=== PATIENT | female | born 1990 | race Caucasian/White ===

== ENCOUNTER 2018-05-31 07:31 | Emergency (ER) | payer BC ==
[2018-05-31 07:36] VITALS: RESP 18
[2018-05-31] MEDS ORDERED: SODIUM CHLORIDE 0.9% 1,000 ML IV STA (07:45)
--- NOTE | 2018-05-31 07:52 | ED ---
Abdominal Pain HPI - General Chief Complaint: Abdominal Pain Stated Complaint: RT SIDE PAIN Time Seen by Provider: 05/31/18 07:37 Source: patient, RN notes reviewed Mode of arrival: wheelchair Limitations: no limitations - History of Present Illness Initial Comments: This is a 27-year-old female presents emergency Department chief complaint right -sided abdominal pain. Patient states it was sudden ONSET OF PAIN THIS MORNING AND NOW HAS LOCATED IN THE RIGHT LOWER QUADRANT. PATIENT STATES THAT NOTHING SEEMS TO MAKE THE PAIN FEEL BETTER OR WORSE. SHE STATES IT IS A CONSTANT STABBING SHARP PAIN. PATIENT'S HAD NO PRIOR ABDOMINAL SURGERIES NO HISTORY KIDNEY STONES. SHE DENIES FEVER, CHILLS, NAUSEA, VOMITING, DIARRHEA CONSTIPATION. SHE HAS NO DYSURIA OR URINARY FREQUENCY. SHE STATES THAT SHE CURRENTLY IS ON HER MENSTRUAL CYCLE. SHE DENIES ANY CHANCE . - Related Data Home Medications Medication Instructions Recorded Confirmed Ibuprofen [Motrin Ib] 400 mg PO Q6H PRN 05/31/18 05/31/18 Previous Rx's Medication Instructions Recorded Ibuprofen [Motrin] 600 mg PO Q8HR PRN #30 tab 05/31/18 Ondansetron Odt [Zofran Odt] 4 mg PO Q8HR PRN #10 tab 05/31/18 Tamsulosin [Flomax] 0.4 mg PO DAILY #7 cap 05/31/18 Allergies Allergy/AdvReac Type Severity Reaction Status Date / Time No Known Allergies Allergy Verified 05/31/18 08:59 Review of Systems ROS Statement: Those systems with pertinent positive or pertinent negative responses have been documented in the HPI. ROS Other: All systems not noted in ROS Statement are negative. Past Medical History Past Medical History: No Reported History History of Any Multi-Drug Resistant Organisms: None Reported Past Surgical History: Adenoidectomy, Ear Surgery, Tonsillectomy Past Psychological History: No Psychological Hx Reported Smoking Status: Never smoker Past Alcohol Use History: Rare Past Drug Use History: None Reported General Exam Limitations: no limitations General appearance: alert, in no apparent distress Head exam: Present: atraumatic, normocephalic, normal inspection Respiratory exam: Present: normal lung sounds bilaterally. Absent: respiratory distress, wheezes, rales, rhonchi, stridor Cardiovascular Exam: Present: regular rate, normal rhythm, normal heart sounds. Absent: systolic murmur, diastolic murmur, rubs, gallop, clicks GI/Abdominal exam: Present: soft, tenderness (Mild tenderness with palpation in the right lower essentially no change in patient's pain with palpation), normal bowel sounds. Absent: distended, guarding, rebound, rigid Back exam: Absent: CVA tenderness (R), CVA tenderness (L) Skin exam: Present: warm, dry, intact, normal color. Absent: rash Course Vital Signs 05/31/18 05/31/18 07:34 09:26 Temperature 97.9 F 98.4 F Pulse Rate 107 H 86 Respiratory 18 18 Rate Blood Pressure 125/65 115/59 O2 Sat by Pulse 100 98 Oximetry Medical Decision Making - Medical Decision Making 27-year-old female presented from for right-sided abdominal pain. Patient's found to have a 3 mm UVJ stone. Patient also has additional nephrolithiasis. Patient is comfortable at this time. Patient we given ibuprofen 600, Zofran and Flomax. She'll be provided on-call urology. Patient does understand that she cannot get while taking Flomax. Patient will follow-up with her PCP and neurology as needed. - Lab Data Result diagrams: 05/31/18 07:50 05/31/18 07:50 Lab Results 05/31/18 05/31/18 05/31/18 Range/Units 07:50 07:50 08:24 WBC 5.9 (3.8-10.6) k/uL RBC 4.45 (3.80-5.40) m/uL Hgb 13.3 (11.4-16.0) gm/dL Hct 40.0 (34.0-46.0) % MCV 89.9 (80.0-100.0) fL MCH 30.0 (25.0-35.0) pg MCHC 33.4 (31.0-37.0) g/dL RDW 12.9 (11.5-15.5) % Plt Count 308 (150-450) k/uL Neutrophils % 51 % Lymphocytes % 39 % Monocytes % 5 % Eosinophils % 1 % Basophils % 0 % Neutrophils # 3.0 (1.3-7.7) k/uL Lymphocytes # 2.3 (1.0-4.8) k/uL Monocytes # 0.3 (0-1.0) k/uL Eosinophils # 0.1 (0-0.7) k/uL Basophils # 0.0 (0-0.2) k/uL Sodium 141 (137-145) mmol/L Potassium 4.0 (3.5-5.1) mmol/L Chloride 108 H (98-107) mmol/L Carbon Dioxide 21 L (22-30) mmol/L Anion Gap 12 mmol/L BUN 16 (7-17) mg/dL Creatinine 0.74 (0.52-1.04) mg/dL Est GFR (CKD-EPI)AfAm >90 (>60 ml/min/1.73 sqM) Est GFR (CKD-EPI)NonAf >90 (>60 ml/min/1.73 sqM) Glucose 105 H (74-99) mg/dL Calcium 9.6 (8.4-10.2) mg/dL Total Bilirubin 1.0 (0.2-1.3) mg/dL AST 22 (14-36) U/L ALT 24 (9-52) U/L Alkaline Phosphatase 63 (38-126) U/L Total Protein 7.2 (6.3-8.2) g/dL Albumin 4.7 (3.5-5.0) g/dL Amylase 53 (30-110) U/L Lipase 61 (23-300) U/L Urine Color Urine Appearance (Clear) Urine pH (5.0-8.0) Ur Specific [place] (1.001-1.035) Urine Protein (Negative) Urine Glucose (UA) (Negative) Urine Ketones (Negative) Urine Blood (Negative) Urine Nitrite (Negative) Urine Bilirubin (Negative) Urine Urobilinogen (<2.0) mg/dL Ur Leukocyte Esterase (Negative) Urine RBC (0-5) /hpf Urine WBC (0-5) /hpf Ur Squamous Epith Cells (0-4) /hpf Urine Bacteria (None) /hpf Urine Mucus (None) /hpf Urine HCG, Qual Not Detected (Not Detectd) 05/31/18 Range/Units 08:24 WBC (3.8-10.6) k/uL RBC (3.80-5.40) m/uL Hgb (11.4-16.0) gm/dL Hct (34.0-46.0) % MCV (80.0-100.0) fL MCH (25.0-35.0) pg MCHC (31.0-37.0) g/dL RDW (11.5-15.5) % Plt Count (150-450) k/uL Neutrophils % % Lymphocytes % % Monocytes % % Eosinophils % % Basophils % % Neutrophils # (1.3-7.7) k/uL Lymphocytes # (1.0-4.8) k/uL Monocytes # (0-1.0) k/uL Eosinophils # (0-0.7) k/uL Basophils # (0-0.2) k/uL Sodium (137-145) mmol/L Potassium (3.5-5.1) mmol/L Chloride (98-107) mmol/L Carbon Dioxide (22-30) mmol/L Anion Gap mmol/L BUN (7-17) mg/dL Creatinine (0.52-1.04) mg/dL Est GFR (CKD-EPI)AfAm (>60 ml/min/1.73 sqM) Est GFR (CKD-EPI)NonAf (>60 ml/min/1.73 sqM) Glucose (74-99) mg/dL Calcium (8.4-10.2) mg/dL Total Bilirubin (0.2-1.3) mg/dL AST (14-36) U/L ALT (9-52) U/L Alkaline Phosphatase (38-126) U/L Total Protein (6.3-8.2) g/dL Albumin (3.5-5.0) g/dL Amylase (30-110) U/L Lipase (23-300) U/L Urine Color Yellow Urine Appearance Clear (Clear) Urine pH 6.0 (5.0-8.0) Ur Specific [place] 1.024 (1.001-1.035) Urine Protein Trace H (Negative) Urine Glucose (UA) Negative (Negative) Urine Ketones Negative (Negative) Urine Blood Moderate H (Negative) Urine Nitrite Negative (Negative) Urine Bilirubin Negative (Negative) Urine Urobilinogen <2.0 (<2.0) mg/dL Ur Leukocyte Esterase Trace H (Negative) Urine RBC 121 H (0-5) /hpf Urine WBC 7 H (0-5) /hpf Ur Squamous Epith Cells 2 (0-4) /hpf Urine Bacteria Rare H (None) /hpf Urine Mucus Moderate H (None) /hpf Urine HCG, Qual (Not Detectd) Disposition Clinical Impression: Ureteral calculi, Nephrolithiasis Disposition: HOME SELF-CARE Condition: Stable Instructions: Kidney Stones (ED), How to Strain Your Urine (ED) Additional Instructions: Please return to the Emergency Department if symptoms worsen or any other concerns. Prescriptions: Ibuprofen [Motrin] 600 mg PO Q8HR PRN #30 tab PRN Reason: Pain Ondansetron Odt [Zofran Odt] 4 mg PO Q8HR PRN #10 tab PRN Reason: Nausea Tamsulosin [Flomax] 0.4 mg PO DAILY #7 cap Is patient prescribed a controlled substance at d/c from ED?: No Referrals: Patti Morgan DO [Primary Care Provider] - 1-2 days Sudheer Santiago MD [STAFF PHYSICIAN] - 1-2 days Time of Disposition: 10:07
[2018-05-31 08:21] LABS: Basophils % (A) 0 %; Eosinophils # (A) 0.1 k/uL (0-0.7); Eosinophils % (A) 1 %; HGB 13.3 gm/dL (11.4-16.0); Lymphocytes # (A) 2.3 k/uL (1.0-4.8); Lymphocytes % (A) 39 %; MCHC 33.4 g/dL (31.0-37.0); MCV 89.9 fL (80.0-100.0); Mean Platelet Volume 7.6; Monocytes # (A) 0.3 k/uL (0-1.0); Monocytes % (A) 5 %; Neutrophils % (A) 51 %; Platelet Count 308 k/uL (150-450); RBC 4.45 m/uL (3.80-5.40); RDW 12.9 % (11.5-15.5); WBC 5.9 k/uL (3.8-10.6)
[2018-05-31 08:25] LABS: ALT 24 U/L (9-52); AST 22 U/L (14-36); Albumin 4.7 g/dL (3.5-5.0); Alkaline Phosphatase 63 U/L (38-126); Amylase 53 U/L (30-110); Anion Gap 12 mmol/L; Blood Urea Nitrogen 16 mg/dL (7-17); Calcium 9.6 mg/dL (8.4-10.2); Carbon Dioxide 21 mmol/L (22-30); Chloride 108 mmol/L (98-107); Glucose 105 mg/dL (74-99); Lipase 61 U/L (23-300); Sodium 141 mmol/L (137-145); Total Protein 7.2 g/dL (6.3-8.2)
[2018-05-31 08:36] LABS: Appearance,Urine Clear (Clear); Bacteria,Urine Rare /hpf; Bilirubin,Urine Negative (Negative); Blood,Urine Moderate (Negative); Color,Urine Yellow; Glucose,Urine (UA) Negative (Negative); Ketones,Urine Negative (Negative); Leukocyte Esterase,Urine Trace (Negative); Mucus,Urine Moderate /hpf; Nitrite,Urine Negative (Negative); Protein,Urine Trace (Negative); RBC,Urine 121 /hpf (0-5); Specific Gravity,Urine 1.024 (1.001-1.035); Squamous Epithelial Cell,Urine 2 /hpf (0-4); Urobilinogen,Urine <2.0 mg/dL (<2.0); WBC,Urine 7 /hpf (0-5)
[2018-05-31] MEDS ORDERED: KETOROLAC 30 MG/ML 1 ML VIAL IVP STA (08:41)
--- NOTE | 2018-05-31 08:58 | XR ---
EXAMINATION TYPE: XR KUB DATE OF EXAM: 05/31/2018 COMPARISON: None INDICATION: Right lower quadrant pain TECHNIQUE: Single view abdomen upright view FINDINGS: There is a normal bowel gas pattern. There is within the colon. Some fecal debris is in the ascending colon and within the lower pelvis. No mass effect is evident. No suspicious air-fluid levels or diff erential air-fluid levels are present. No free air is present. Psoas margins are normal. No organomegaly is present. IMPRESSION: 1. Unremarkable Abdomen
--- NOTE | 2018-05-31 09:55 | CT ---
EXAMINATION TYPE: CT abdomen pelvis wo con DATE OF EXAM: 05/31/2018 COMPARISON: None HISTORY: 27-year-old female RLQ pain CT DLP: 258.9 mGycm. Automated exposure control for dose reduction was used. TECHNIQUE: Contiguous axial scanning of the abdomen and pelvis without IV contrast. Coronal and sagit rivera reconstructions performed. FINDINGS: Heart normal size without pericardial effusion. Lung bases clear without pleural effusion. Noncontrast appearance of the liver, gallbladder, adrenal glands, spleen, and pancreas show no gross abnormality. Punctate 3 mm nonobstructive calculus upper to midpole left kidney. Punctate 1 to 2 mm nonobstructive calculus lower pole right kidney. In addition, there is mild right- sided hydronephrosis and hydroureter. 3 mm calcification in the right side of the pelvis suspected to be within the distal right ureter. No dilated small bowel, free fluid, or free air. Lack of contrast limits assessment for lymphadenopat hy. No obvious retroperitoneal or mesenteric lymphadenopathy. Mild to moderate stool burden. Bladder incompletely distended. Uterus anteverted. Both ovaries are visualized. Tampon is in place. M ild cul-de-sac free fluid likely physiologic. Bones: No osseous destructive process. IMPRESSION: 1. A 3 mm distal right ureteral calculus with mild obstructive uropathy. 2. Additional punctate 1 to 2 mm nonobstructive right renal calculus and a small 3 mm nonobstructive left renal calculus. 3. Mild cul-de-sac free fluid likely physiologic.
[2018-05-31 10:31] VITALS: BP 110/58; PULSE 79; TEMP 97.2
== END 2018-05-31 10:30 | disposition home or self-care (01) ==
LOC: EC 07:31
DX: N20.2 Calculus of kidney with calculus of ureter (principal)
CPT/HCPCS: 36415; 74018; 74176; 80053; 81001; 81025; 82150; 83690; 85025; 96360; 99284

== ENCOUNTER 2023-09-12 12:40 | Emergency (ER) | payer BC ==
[2023-09-12 12:46] VITALS: PULSE 83
[2023-09-12] MEDS ORDERED: FAMOTIDINE 20 MG/2 ML VIAL IV STA (12:56)
[2023-09-12] MEDS ORDERED: FAMOTIDINE 20 MG TAB PO STA (12:56)
[2023-09-12] MEDS ORDERED: ONDANSETRON ODT 4 MG TAB PO STA (12:56)
--- NOTE | 2023-09-12 13:00 | ED ---
General Adult HPI - General Chief complaint: Upper Respiratory Infection Stated complaint: Sore throat,Cough, 29 weeks preg Time Seen by Provider: 09/12/23 12:50 Source: patient, family, RN notes reviewed Mode of arrival: ambulatory Limitations: no limitations - History of Present Illness Initial comments: Patient is a pleasant 32-year-old female presenting to the emergency Department with upper respiratory symptoms. Onset of symptoms was a few days ago. Patient does have some mild congestion. Patient does have cough. No dyspnea. Patient does have sore throat. Patient is approximately 29 weeks gravid. No abdominal pain or pelvic pain. No vaginal bleeding. Patient feels like she is concerned seem less movement than normal, however is still feeling movement. Patient does have nausea. Patient is tolerating oral intake however. - Related Data Home Medications Medication Instructions Recorded Confirmed Ibuprofen [Motrin Ib] 400 mg PO Q6H PRN 05/31/18 05/31/18 Previous Rx's Medication Instructions Recorded Ibuprofen [Motrin] 600 mg PO Q8HR PRN #30 tab 05/31/18 Ondansetron Odt [Zofran Odt] 4 mg PO Q8HR PRN #10 tab 05/31/18 Tamsulosin [Flomax] 0.4 mg PO DAILY #7 cap 05/31/18 Allergies Allergy/AdvReac Type Severity Reaction Status Date / Time No Known Allergies Allergy Verified 09/12/23 12:42 Review of Systems ROS Statement: Those systems with pertinent positive or pertinent negative responses have been documented in the HPI. ROS Other: All systems not noted in ROS Statement are negative. Constitutional: Denies: fever Eyes: Denies: eye pain ENT: Reports: as per HPI, throat pain, congestion. Denies: ear pain Respiratory: Reports: as per HPI, cough. Denies: dyspnea Cardiovascular: Denies: chest pain Endocrine: Denies: fatigue Gastrointestinal: Reports: nausea. Denies: abdominal pain, vomiting Genitourinary: Denies: dysuria Musculoskeletal: Denies: back pain Skin: Denies: rash Past Medical History Past Medical History: No Reported History History of Any Multi-Drug Resistant Organisms: None Reported Past Surgical History: Adenoidectomy, Ear Surgery, Tonsillectomy Past Psychological History: No Psychological Hx Reported Past Alcohol Use History: Rare Past Drug Use History: None Reported General Exam Limitations: no limitations General appearance: alert, in no apparent distress Head exam: Present: normocephalic Eye exam: Present: normal appearance ENT exam: Present: normal oropharynx Neck exam: Present: normal inspection Respiratory exam: Present: normal lung sounds bilaterally Cardiovascular Exam: Present: regular rate, normal rhythm GI/Abdominal exam: Present: soft, other (Gravid state consistent with patient's history). Absent: tenderness Extremities exam: Present: normal inspection. Absent: pedal edema, calf tenderness Neurological exam: Present: alert Psychiatric exam: Present: normal affect, normal mood Skin exam: Present: normal color Course Vital Signs 09/12/23 09/12/23 09/12/23 12:42 12:55 14:12 Temperature 98.9 F 96.8 F L Pulse Rate 83 83 Respiratory 16 18 18 Rate Blood Pressure 130/77 117/72 O2 Sat by Pulse 98 Oximetry Medical Decision Making - Medical Decision Making Discussion had with patient regarding chest x-ray. Patient is at low risk for pneumonia. Patient refuses chest x-ray. Was pt. sent in by a medical professional or institution (, PA, ASSOCIATE PROFESSOR OF HISTORY, urgent care, hospital, or senior living...) When possible be specific @ -No Did you speak to anyone other than the patient for history (EMS, parent, family, police, friend...)? What history was obtained from this source @ -Mother is present and helps provide additional history Did you review nursing and triage notes (agree or disagree)? Why? @ -I reviewed and agree with nursing and triage notes Were old charts reviewed (outside hosp., previous admission, EMS record, old EKG, old radiological studies, urgent care reports/EKG's, senior living records)? Report findings @ -No old charts were reviewed Differential Diagnosis (chest pain, altered mental status, abdominal pain women, abdominal pain men, vaginal bleeding, weakness, fever, dyspnea, syncope, headache, dizziness, GI bleed, back pain, seizure, CVA, palpatations, mental health, musculoskeletal)? @ -Differential Fever: Pneumonia, viral URI, endocarditis, myocarditis, pericarditis, otitis, sinusitis, peritonsillar Abscess, retropharyngeal Abscess, epiglottitis, peritonitis, appendicitis, [place] cystitis, diverticulitis, hepatitis, colitis, UTI, PID, TOA, pyelonephritis, prostatitis, epididymitis, meningitis, encephalitis, pulmonary embolism, CVA, thyroid storm, pancreatitis, adrenal crisis, cavernous sinus thrombosis, this is not meant to be an all-inclusive list. EKG interpreted by me (3pts min.). @ -As above X-rays interpreted by me (1pt min.). @ -None done CT interpreted by me (1pt min.). @ -None done U/S interpreted by me (1pt. min.). @ -None done What testing was considered but not performed or refused? (CT, X-rays, U/S, labs)? Why? @ -Considered x-ray however patient refuses. Patient is low suspicion for pneumonia What meds were considered but not given or refused? Why? @ -Consider antibiotics however patient presents with viral-like symptoms Did you discuss the management of the patient with other professionals (professionals i.e. , PA, ASSOCIATE PROFESSOR OF HISTORY, lab, RT, psych nurse, social work professor, sandblaster paint sprayer, teacher, hydrological technical officer, case management social worker)? Give summary @ -No Was smoking cessation discussed for >3mins.? @ -No Was critical care preformed (if so, how long)? @ -No Were there social determinants of health that impacted care today? How? (Homelessness, low income, unemployed, alcoholism, drug addiction, transportation, low edu. Level, literacy, decrease access to med. care, long term, rehab)? @ -No Was there de-escalation of care discussed even if they declined (Discuss DNR or withdrawal of care, Hospice)? DNR status @ -No What co-morbidities impacted this encounter? (DM, HTN, Smoking, COPD, CAD, Cancer, CVA, ARF, Chemo, Hep., AIDS, mental health diagnosis, sleep apnea, morbid obesity)? @ -Patient is 29 weeks Was patient admitted / discharged? Hospital course, mention meds given and route, prescriptions, significant lab abnormalities, going to OR and other pertinent info. @ -Patient reevaluated and updated on results as well as need for follow-up. Patient also advised to heading upstairs for nonstress test Undiagnosed new problem with uncertain prognosis? @ -No Drug Therapy requiring intensive monitoring for toxicity (Heparin, Nitro, Insulin, Cardizem)? @ -No Were any procedures done? @ -No Diagnosis/symptom? @ -Upper respiratory infection, viral sinusitis Acute, or Chronic, or Acute on Chronic? @ -Acute, acute Uncomplicated (without systemic symptoms) or Complicated (systemic symptoms)? @ -default Side effects of treatment? @ -No Exacerbation, Progression, or Severe Exacerbation? @ -No Poses a threat to life or bodily function? How? (Chest pain, [place], [place], pneumonia, PE, COPD, DKA, ARF, appy, cholecystitis, CVA, Diverticulitis, Homicidal, Suicidal, threat to staff... and all critical care pts) @ -No - Lab Data Lab Results 09/12/23 09/12/23 Range/Units 12:59 12:59 Influenza Type A (PCR) Not Detected (Not Detectd) Influenza Type B (PCR) Not Detected (Not Detectd) RSV (PCR) Not Detected (Not Detectd) SARS-CoV-2 (PCR) Not Detected (Not Detectd) Group A Strep (PCR) NOT DETECTED (Not Detectd) Disposition Clinical Impression: Upper respiratory infection, Viral sinusitis Disposition: HOME SELF-CARE Condition: Stable Instructions (If sedation given, give patient instructions): Upper Respiratory Infection (ED) Additional Instructions: Please head upstairs for nonstress test. Please follow-up with your SUPERVISOR PREP in the next one or 2 days for recheck. Please also follow-up to primary care physician next one or 2 days for recheck. Return for difficulty breathing, fevers, pelvic pain or bleeding, worsening or changing symptoms or other concerns. Is patient prescribed a controlled substance at d/c from ED?: No Referrals: Patti Morgan DO [Primary Care Provider] - 1-2 days Time of Disposition: 14:32
[2023-09-12 13:11] VITALS: RESP 18
[2023-09-12 14:29] VITALS: BP 117/72; TEMP 96.8
== END 2023-09-12 14:37 | disposition home or self-care (01) ==
LOC: EC 12:40
DX: O99.513 Diseases of the respiratory system complicating pregnancy, third trimester (principal); J06.9 Acute upper respiratory infection, unspecified; J32.9 Chronic sinusitis, unspecified; Z3A.29 29 weeks gestation of pregnancy; Z20.822 Contact with and (suspected) exposure to COVID-19
CPT/HCPCS: 87636; 87651; 99283

== ENCOUNTER 2023-10-20 15:04 | Outpatient (CLI) | payer BC | END 2023-10-20 15:35 | disposition home or self-care (01) | LOC: FBPOP 15:04 | PROVIDERS: ATTEND Obstetrics & Gynecology | DX: O69.89X0 Labor and delivery complicated by other cord complications, not applicable or unspecified (principal); Z3A.34 34 weeks gestation of pregnancy | CPT/HCPCS: 59025 ==

== ENCOUNTER 2023-10-28 13:27 | Outpatient (CLI) | payer BC | END 2023-10-28 13:59 | disposition home or self-care (01) | LOC: FBPOP 13:27 | PROVIDERS: ATTEND Obstetrics & Gynecology | DX: O69.5XX2 Labor and delivery complicated by vascular lesion of cord, fetus 2 (principal); Z3A.29 29 weeks gestation of pregnancy | CPT/HCPCS: 59025; 99213 ==

== ENCOUNTER 2023-11-10 15:24 | Outpatient (CLI) | payer BC ==
[2023-11-10 16:16] VITALS: BP 137/85; PULSE 75; RESP 16; TEMP 97.9
--- NOTE | 2023-11-13 16:49 | P.MSEPDOC ---
Presenting Problems - Arrival Data Date of Arrival on Unit: 11/10/23 Time of Arrival on Unit: 15:24 Mode of Transport: Ambulatory - Complaint OB-Reason for Admission/Chief Complaint: NST Comment: NST with orders to D/C home if reactive Medical History - Information : 1 Para: 0 Term: 0 : 0 Abortions: Spontaneous or Elective: 0 Number of Living Children: 0 - Gestational Age Gestational Age by AZIZA (wks/days): 37 Weeks and 2 Days - History Complications: GBS+ Comment: 2 vessel cord Review of Systems - Review of Systems Constitutional: No problems Breast: No problems ENT: No problems Cardiovascular: No problems Respiratory: No problems Gastrointestinal: No problems Genitourinary: No problems Musculoskeletal: No problems Neurological: No problems Skin: No problems Vital Signs - Temperature Temperature: 97.9 F Temperature Source: Temporal Artery Scan - Pulse Pulse Oximetery Pulse Rate: 75 Pulse Assessment Method: Pulse Oximetry - Respirations Respiratory Rate: 16 Oxygen Delivery Method: Room Air O2 Sat by Pulse Oximetry: 97 - Blood Pressure Right Arm Blood Pressure: 137/85 Blood Pressure Mean: 102 Blood Pressure Source: Automatic Cuff Medical Screen Scoring - Assessment - Baby A Baseline FHR: 145 Heart Rate - NICHD Category: Category I (Normal) NST: Reactive Physician Notification - Notification Comment Comment: Pt presents with written orders for an NST and to discharge pt home if reactive. Maternal Triage Index - Maternal Triage Index Presenting for scheduled procedure w/no complaint: Yes - Scheduled/Requesting Priority 5 Scheduled/Requesting Priority 5: Yes Criteria Met for Priority 5: NST with written orders to discharge home if reactive Disposition - Disposition OB Disposition: Discharge to home Discharge Date: 11/10/23 Discharge Time: 15:58 I agree with the RN Medical Screening Exam: Yes Case reviewed; plan agreed upon as documented in EMR&OBIX.: Yes Diagnosis: RELATED CONDITIONS, UNSPECIFIED, THIRD TRIMESTER
== END 2023-11-10 15:58 | disposition home or self-care (01) ==
LOC: FBPOP 15:24
PROVIDERS: ATTEND Obstetrics & Gynecology
DX: O99.820 Streptococcus B carrier state complicating pregnancy (principal); O69.5XX1 Labor and delivery complicated by vascular lesion of cord, fetus 1; Z3A.37 37 weeks gestation of pregnancy
CPT/HCPCS: 59025; 99213

== ENCOUNTER 2023-11-16 14:22 | Inpatient (IN) | payer BC ==
[2023-11-16 15:13] LABS: Appearance,Urine Clear (Clear); Bacteria,Urine Rare /hpf; Bilirubin,Urine Negative (Negative); Blood,Urine Trace (Negative); Color,Urine Light Yellow; Glucose,Urine (UA) Negative (Negative); Ketones,Urine Negative (Negative); Leukocyte Esterase,Urine Small (Negative); Mucus,Urine Occasional /hpf; Nitrite,Urine Negative (Negative); Protein,Urine 1+ (Negative); RBC,Urine 1 /hpf (0-5); Specific Gravity,Urine 1.017 (1.001-1.035); Squamous Epithelial Cell,Urine 1 /hpf (0-4); Urobilinogen,Urine <2.0 mg/dL (<2.0); WBC,Urine 4 /hpf (0-5)
[2023-11-16 15:32] LABS: Creatinine,Urine Random 97.5 mg/dL
[2023-11-16 15:55] LABS: Basophils % (A) 0 %; Eosinophils % (A) 0 %; HCT 28.4 % (34.0-46.0); HGB 9.9 gm/dL (11.4-16.0); Lymphocytes # (A) 1.8 k/uL (1.0-4.8); Lymphocytes % (A) 19 %; MCH 31.2 pg (25.0-35.0); MCV 89.1 fL (80.0-100.0); Mean Platelet Volume 12.5; Monocytes # (A) 0.4 k/uL (0-1.0); Monocytes % (A) 4 %; Neutrophils # (A) 7.2 k/uL (1.3-7.7); Neutrophils % (A) 75 %; Platelet Count 187 k/uL (150-450); RBC 3.19 m/uL (3.80-5.40); RDW 12.8 % (11.5-15.5); WBC 9.6 k/uL (3.8-10.6)
[2023-11-16 15:59] LABS: INR 0.9 (<1.2); Partial Thromboplastin Time 24.8 sec (22.0-30.0); Prothrombin Time 9.8 sec (10.0-12.5)
[2023-11-16 16:10] LABS: ALT 18 U/L (4-34); AST 23 U/L (14-36); African American GFR (CKD) >90 (>60 ml/min/1.73 sqM); Blood Urea Nitrogen 14 mg/dL (7-17); LDH 196 U/L (120-246); Non-African American GFR(CKD) >90 (>60 ml/min/1.73 sqM)
[2023-11-16 16:21] LABS: Large Platelets Present; Polychromasia Present
[2023-11-16 16:31] LABS: Creatinine,Urine Random 97.5 mg/dL
[2023-11-16 16:32] LABS: Protein/Creatinine Ratio,Urine 1.333
[2023-11-17] MEDS ORDERED: TRANEXAMIC 1,000 MG/100ML-NACL 1,000 MG in EMPTY BAG 1 BAG IV PRN (04:33)
[2023-11-17] MEDS ORDERED: METHYLERGONOVINE 0.2 MG/ML 1 ML AMP IM PRN (04:33)
[2023-11-17] MEDS ORDERED: TERBUTALINE 1 MG/ML VIAL SQ PRN (04:33)
[2023-11-17] MEDS ORDERED: CARBOPROST TROMETHAMINE 250 MCG/ML 1 ML AMP IM PRN (04:33)
[2023-11-17] MEDS ORDERED: OXYTOCIN 10 UNIT/ML 1 ML VIAL IM PRN (04:33)
[2023-11-17] MEDS ORDERED: miSOPROStoL 200 MCG TAB PO PRN (04:33)
[2023-11-17] MEDS: LACTATED RINGERS 1,000 ML IV SCH (04:58)
[2023-11-17] MEDS: LABETALOL 200 MG TAB PO STA (05:11)
[2023-11-17] MEDS: AMPICILLIN 2,000 MG in SODIUM CHLORIDE 0.9% 100 ML IVPB ONE (05:50)
[2023-11-17] MEDS: OXYTOCIN 30 UNITS/500 ML NS 30 UNIT in SALINE 1 500ML.BAG IV SCH (05:51)
[2023-11-17 06:05] LABS: Basophils % (A) 0 %; Eosinophils # (A) 0.1 k/uL (0-0.7); Eosinophils % (A) 1 %; HCT 29.9 % (34.0-46.0); HGB 10.2 gm/dL (11.4-16.0); Hypochromasia Slight; Lymphocytes # (A) 2.2 k/uL (1.0-4.8); Lymphocytes % (A) 26 %; MCH 30.3 pg (25.0-35.0); MCV 89.2 fL (80.0-100.0); Mean Platelet Volume 13.4; Monocytes # (A) 0.5 k/uL (0-1.0); Monocytes % (A) 5 %; Neutrophils # (A) 5.6 k/uL (1.3-7.7); Neutrophils % (A) 65 %; Platelet Count 173 k/uL (150-450); RBC 3.36 m/uL (3.80-5.40); WBC 8.6 k/uL (3.8-10.6)
[2023-11-17] MEDS ORDERED: hydrALAZINE HCL 20 MG/ML 1 ML VIAL IVP PRN (06:15)
[2023-11-17] MEDS ORDERED: LABETALOL 5 MG/ML VIAL MDV IVP PRN ×2 (06:15)
[2023-11-17] MEDS: LABETALOL 5 MG/ML VIAL MDV IVP PRN (06:22)
--- NOTE | 2023-11-17 06:33 | P.HPOB ---
History of Present Illness H&P Date: 11/17/23 Chief Complaint: Preeclampsia This patient is a pleasant 33-year-old 1 para 0 female estimated date of confinement 11/29/2023 estimated gestational age 38-2/7 weeks who presented to labor and delivery triage yesterday for a nonstress tests secondary to a known two-vessel umbilical cord. Upon arrival patient had elevated blood pressures and Dr. Pryor did preeclampsia labs which showed an elevated PC ratio. Blood pressures continued to be persistently elevated and patient therefore is admitted for delivery secondary to preeclampsia. Patient's is com plicated by two-vessel cord. She was referred to maternal- medicine and did have a level III ultrasound that was normal. Patient has been followed with growth ultrasounds and testing. She has not had any elevated blood pressures until yesterday. She has been developing some significant edema. Review of Systems Genitourinary: Reports Menstruation: Reports amenorrhea Past Medical History Past Medical History: Asthma Additional Past Medical History / Comment(s): Childhood asthma History of Any Multi-Drug Resistant Organisms: None Reported Past Surgical History: Adenoidectomy, Ear Surgery, Tonsillectomy Past Anesthesia/Blood Transfusion Reactions: No Reported Reaction Past Psychological History: No Psychological Hx Reported Smoking Status: Never smoker Past Alcohol Use History: None Reported, Rare Past Drug Use History: None Reported - Past Family History Mother Family Medical History: Cancer Additional Family Medical History / Comment(s): Breast cancer Medications and Allergies Home Medications Medication Instructions Recorded Confirmed Type Vqb-Fmhp-Omgcy Acid 1 cap PO DAILY 09/12/23 11/16/23 History [-U Capsule (formulary)] Allergies Allergy/AdvReac Type Severity Reaction Status Date / Time No Known Allergies Allergy Verified 11/16/23 14:39 Exam Vital Signs Temp Pulse Resp BP Pulse Ox 11/16/23 20:00 96.6 F L 106 H 16 143/80 97 11/16/23 17:23 98.2 F 76 18 159/90 99 11/16/23 17:12 98.2 F 76 18 159/90 Intake and Output 11/16/23 11/16/23 11/17/23 14:59 22:59 06:59 Other: # Voids 2 2 Weight 82.554 kg 82.554 kg - OBG Physical Exam Abdomen: bowel sounds normal, no diffuse tenderness, no bruit present, no guarding noted, no hepatomegaly, no splenomegaly, no mass Vulva: both: normal Vagina: normal moisture, no discharge Cervix: no lesion (Cervix is 2 cm dilated 70% effaced -2 station), no discharge Uterus: enlarged (Fundal height in the office is 37 cm) Results labs show she is A positive, rubella nonimmune, RPR is nonreactive, HIV is negative, hepatitis B and C are negative, Glucola was 141 with a normal three-hour gtt., most recent ultrasound showed baby 5 lbs. 9 oz. vertex presentation, group B strep was positive. Level III ultrasound cardiac echo were normal. Result Diagrams: 11/17/23 04:54 11/16/23 15:33 Abnormal Lab Results - Last 24 Hours (Table) 11/16/23 11/16/23 11/16/23 Range/Units 14:59 14:59 15:33 RBC 3.19 L (3.80-5.40) m/uL Hgb 9.9 L (11.4-16.0) gm/dL Hct 28.4 L (34.0-46.0) % PT (10.0-12.5) sec Urine Protein 1+ H (Negative) Urine Blood Trace H (Negative) Ur Leukocyte Esterase Small H (Negative) Urine Bacteria Rare H (None) /hpf Urine Mucus Occasional H (None) /hpf U Random Total Protein 130 H (<12) mg/dL 11/16/23 11/17/23 Range/Units 15:33 04:54 RBC 3.36 L (3.80-5.40) m/uL Hgb 10.2 L (11.4-16.0) gm/dL Hct 29.9 L (34.0-46.0) % PT 9.8 L (10.0-12.5) sec Urine Protein (Negative) Urine Blood (Negative) Ur Leukocyte Esterase (Negative) Urine Bacteria (None) /hpf Urine Mucus (None) /hpf U Random Total Protein (<12) mg/dL Assessment and Plan Assessment: This is a pleasant 33-year-old 1 para 0 female 38-2/7 weeks gestation with preeclampsia. Patient has required oral and IV labetalol for blood pressure control and plan is to proceed with delivery at this time. I discussed the induction process with the patient and her and all questions are an swered. Most likely we will proceed with magnesium sulfate . (1) 38 weeks gestation of Current Visit: Yes Status: Acute Code(s): Z3A.38 - 38 WEEKS GESTATION OF SNOMED Code(s): 43729710 (2) Preeclampsia Current Visit: Yes Status: Acute Code(s): O14.90 - UNSPECIFIED PRE- ECLAMPSIA, UNSPECIFIED TRIMESTER SNOMED Code(s): 644940442 (3) Two vessel umbilical cord Current Visit: Yes Status: Acute Code(s): Q27.0 - CONGENITAL ABSENCE AND HYPOPLASIA OF UMBILICAL ARTERY SNOMED Code(s): 331782940
[2023-11-17 07:03] LABS: Large Platelets Present
[2023-11-17] MEDS ORDERED: SODIUM CHLORIDE 0.9% 250 ML BAG ONE (08:50)
[2023-11-17] MEDS ORDERED: fentaNYL (PF) 50 MCG/ML 5 ML AMP ONE (08:50)
[2023-11-17] MEDS ORDERED: ROPIVACAINE 5 MG/ML 30 ML VIAL ONE (08:50)
[2023-11-17] MEDS: AMPICILLIN 1,000 MG in SODIUM CHLORIDE 0.9% 50 ML IVPB SCH (09:40)
[2023-11-17] MEDS: LIDOCAINE 0.5% (PF) 5 MG/ML (50 ML SDV) SQ PRN (12:35)
[2023-11-17] MEDS ORDERED: ACETAMINOPHEN TAB 325 MG TAB PO PRN (12:57)
[2023-11-17] MEDS ORDERED: BENZOCAINE/MENTHOL SPRAY 1 GM/SPRAY AEROSOL TOPICAL PRN (12:57)
[2023-11-17] MEDS ORDERED: ZOLPIDEM 5 MG TAB PO PRN (12:57)
[2023-11-17] MEDS ORDERED: LANOLIN CREAM 1 GM TUBE TOPICAL PRN (12:57)
[2023-11-17] MEDS ORDERED: diphenhydrAMINE 25 MG CAP PO PRN (12:57)
[2023-11-17] MEDS ORDERED: diphenhydrAMINE 50 MG/ML 1 ML VIAL IVP PRN (12:57)
[2023-11-17] MEDS ORDERED: SIMETHICONE 80 MG CHEWABLE PO PRN (12:57)
[2023-11-17] MEDS ORDERED: HYDROCORTISONE 2.5% RECTAL CREAM 30 GM TUBE RECTAL PRN (12:57)
[2023-11-17] MEDS ORDERED: bisacodyL 10 MG SUPP RECTAL PRN (12:57)
[2023-11-17] MEDS ORDERED: CALCIUM GLUCONATE 1 GM/10 ML VIAL IV PRN (13:00)
[2023-11-17] MEDS ORDERED: OXYTOCIN 30 UNITS/500 ML NS 30 UNIT in SALINE 1 500ML.BAG IV SCH (13:00)
--- NOTE | 2023-11-17 13:08 | P.PROBDLV ---
Vaginal Delivery Note - . Vaginal Delivery Note: Normal vaginal delivery viable female Apgars 8 and 9 at 1156 hrs. Please see dictated H&P for intimate details of this patient's admission. Brief summary is a pleasant 33-year-old 1 para 0 female 38-2/7 weeks gestation admitted last evening with preeclampsia. Patient has artificial rupture of membranes this morning at 2 cm dilated for clear fluid. Labor is induced with Pitocin per protocol. Patient progresses and does get an epidural for pain con trol. She does require 1 dose of IV labetalol intrapartum and one dose of oral labetalol. Patient's labor progresses quickly and she pushes for approximately 45 minutes. She pushes the head to the perineum. At this time the perineum was noted to be constricted and therefore a midline episiotomy is made. We then have controlled delivery of the infant's head over the perineum. Mouth and nares are bulb suctioned. There is no evidence of a nuchal cord. With gentle downward traction we then have delivery the anterior and posterior shoulder and rest this infant's body. This is a vigorous viable female Apgars are 8 and 9 delivery time is 1156 hrs. After delivery of the the umbilical cord is allowed quit pulsating then doubly clamped and cut. The infant is laid on the mother's abdomen. The umbilical cord is 2 vessel and very thin. Patient begins having some bleeding and it is evident she has a retained placenta. Patient is then performed and I will need to do manual extraction. Gloved hand is then placed up into the uterus and the placenta is removed piecemeal. I make another pass with the gloved hand and no further tissue was noted and bleeding subsides at this time. Inspection of the perineum shows a second-degree laceration which is repaired in 3-0 Vicryl. Excellent reapproximation is noted. All counts are correct 3. Estimated blood loss is a pproximately 300 mL. Due to her preeclampsia will start magnesium sulfate therapy at this time and also give her 1 dose of broad-spectrum antibiotics due to manual extraction.
[2023-11-17] MEDS: MAGNESIUM SULFATE-WATER PMX 4 GM in WATER FOR INJECTION 1 100ML.BAG IVPB ONE (13:49)
[2023-11-17] MEDS: MAGNESIUM SULFATE-WATER PMX 20 GM in WATER FOR INJECTION 1 500ML.BAG IV SCH (14:11)
[2023-11-17] MEDS: MEASLES-MUMPS-RUBELLA VACC/PF 12,500 UNIT/0.5 ML VIAL SQ ONE (15:34)
[2023-11-17] MEDS: IBUPROFEN 600 MG TAB PO PRN (18:28)
[2023-11-17] MEDS: SENNOSIDES-DOCUSATE SODIUM 1 EACH TAB PO SCH (20:14)
[2023-11-17] MEDS: LABETALOL 200 MG TAB PO SCH (21:10)
--- NOTE | 2023-11-18 06:57 | P.PNOBGVD ---
Subjective - Subjective Patient reports: Reports appetite normal, Reports voiding normally, Reports pain well controlled, Reports ambulating normally [place]: doing well Objective - Latest Vital Signs Latest vital signs: Vital Signs Temp Pulse Resp BP BP Pulse Ox 11/18/23 06:28 76 16 123/78 11/18/23 05:00 86 16 117/79 11/18/23 03:15 97.7 F 79 16 125/76 11/18/23 02:00 75 16 133/76 11/18/23 01:05 97.8 F 78 16 117/72 11/18/23 00:07 75 16 132/73 11/17/23 22:00 79 16 116/63 11/17/23 21:16 80 16 127/74 11/17/23 20:00 98.6 F 80 16 126/75 11/17/23 18:15 90 16 131/83 11/17/23 17:08 91 16 135/75 11/17/23 15:30 16 96 11/17/23 15:00 81 14 151/86 11/17/23 14:30 77 16 127/70 11/17/23 14:20 82 14 135/74 11/17/23 14:15 78 16 120/67 11/17/23 13:50 97.7 F 81 16 144/84 11/17/23 13:20 78 16 142/83 11/17/23 13:05 86 16 136/84 11/17/23 12:50 90 16 132/80 11/17/23 12:35 97.8 F 79 16 135/78 11/17/23 12:20 96 16 136/85 Intake and Output 11/17/23 11/17/23 11/18/23 14:59 22:59 06:59 Intake Total 500.0 458.333 Output Total 404 342 4521 Balance 117.0 -800 -2241.667 Intake: Intake, IV Titration 500.0 458.333 Amount Magnesium Sulfate-Water 458.333 Pmx 20 gm In Water For Injection 1 500ml.bag @ 2 GM/HR 50 mls/hr IV .Q10H NORBERTO Rx#:[id number] Oxytocin 30 Units/500 ml 500.0 Ns 30 unit In Saline 1 500ml.bag @ Per Protocol IV .Q0M NORBERTO Rx#:[id number] Output: Urine 800 2700 Uretheral (Juarez) 1800 Output, Quantitative 383 Blood Loss - Exam Lungs: bilateral: normal Chest: Normal S1, Normal S2 Extremities: Present: normal Abdomen: Present: normal appearance, soft Uterus: Present: normal, firm Assessment and Plan Assessment: day #1. Patient is resting without new complaints. Blood pressures are much improved on oral labetalol and magnesium sulfate. She is having normal lochia. CBC is pending at time of this dictation. Plan today is to discontinue her magnesium sulfate, discontinue her catheter, encourage ambulation, check a CBC, and continue routine care. (1) 38 weeks gestation of Current Visit: Yes Status: Acute Code(s): Z3A.38 - 38 WEEKS GESTATION OF SNOMED Code(s): 82945561 (2) Preeclampsia Current Visit: Yes Status: Acute Code(s): O14.90 - UNSPECIFIED PRE- ECLAMPSIA, UNSPECIFIED TRIMESTER SNOMED Code(s): 514089223 (3) Two vessel umbilical cord Current Visit: Yes Status: Acute Code(s): Q27.0 - CONGENITAL ABSENCE AND HYPOPLASIA OF UMBILICAL ARTERY SNOMED Code(s): 850535052
[2023-11-18 07:42] LABS: Basophils % (A) 0 %; Eosinophils % (A) 0 %; Hypochromasia Slight; Lymphocytes # (A) 1.6 k/uL (1.0-4.8); Lymphocytes % (A) 12 %; MCHC 33.4 g/dL (31.0-37.0); MCV 89.8 fL (80.0-100.0); Monocytes # (A) 0.4 k/uL (0-1.0); Monocytes % (A) 3 %; Neutrophils # (A) 10.7 k/uL (1.3-7.7); Neutrophils % (A) 84 %; Platelet Count 167 k/uL (150-450); RDW 13.2 % (11.5-15.5); WBC 12.7 k/uL (3.8-10.6)
[2023-11-18 07:43] LABS: HGB 8.7 gm/dL (11.4-16.0)
[2023-11-18 08:03] LABS: Hypochromasia (M) Present; Target Cells Present; Tear Drop Cells Present
[2023-11-18 08:04] LABS: Polychromasia Present
[2023-11-18] MEDS: FERROUS SULFATE 325 MG TAB PO SCH (10:31)
[2023-11-18] MEDS: LABETALOL 5 MG/ML VIAL MDV IVP STA (16:47)
[2023-11-18] MEDS: LABETALOL 100 MG TAB PO SCH (20:54)
--- NOTE | 2023-11-19 07:27 | P.PNOBGVD ---
Subjective - Subjective Patient reports: Reports appetite normal, Reports voiding normally, Reports pain well controlled, Reports ambulating normally : doing well Objective - Latest Vital Signs Latest vital signs: Vital Signs Temp Pulse Resp BP BP Pulse Ox 11/19/23 04:00 97.9 F 77 16 138/77 98 11/19/23 00:00 98.2 F 89 16 150/84 97 11/18/23 19:46 98.5 F 80 16 153/89 11/18/23 18:05 98.2 F 76 16 143/81 98 11/18/23 16:00 98.5 F 80 15 170/100 161/98 97 11/18/23 12:00 98.5 F 79 16 146/86 97 11/18/23 10:00 85 143/83 11/18/23 08:15 97.3 F L 86 15 141/86 97 Intake and Output 11/18/23 11/19/23 11/19/23 22:59 06:59 14:59 Other: # Voids 2 1 - Exam Lungs: bilateral: normal Chest: Normal S1, Normal S2 Extremities: Present: normal Abdomen: Present: normal appearance, soft Uterus: Present: normal, firm - Labs Labs: Abnormal Lab Results - Last 24 Hours (Table) 11/18/23 Range/Units 07:08 WBC 12.7 H (3.8-10.6) k/uL RBC 2.90 L (3.80-5.40) m/uL Hgb 8.7 L D (11.4-16.0) gm/dL Hct 26.0 L (34.0-46.0) % Neutrophils # 10.7 H (1.3-7.7) k/uL Assessment and Plan Assessment: Post day #2. Patient is resting without new complaints. She did have some elevated blood pressures yesterday that required a dose of IV labetalol and I did increase her labetalol to 300 mg by mouth twice a day. Blood pressure is better this morning. CBC yesterday showed a hemoglobin of 8.7 which is a normal drop from her predelivery hemoglobin of 9.9. I did start her on iron therapy yesterday. She's having normal lochia. Uterus is firm. Plan today is to continue adjusting her antihypertensive medications and routine care. She is not able to go home today until blood pressures are stabilized. (1) 38 weeks gestation of Current Visit: Yes Status: Acute Code(s): Z3A.38 - 38 WEEKS GESTATION OF SNOMED Code(s): 60917026 (2) Preeclampsia Current Visit: Yes Status: Acute Code(s): O14.90 - UNSPECIFIED PRE- ECLAMPSIA, UNSPECIFIED TRIMESTER SNOMED Code(s): 714632425 (3) Two vessel umbilical cord Current Visit: Yes Status: Acute Code(s): Q27.0 - CONGENITAL ABSENCE AND HYPOPLASIA OF UMBILICAL ARTERY SNOMED Code(s): 736044707
[2023-11-19] MEDS: NIFEdipine XL 30 MG TAB.ER.24 PO SCH (12:49)
[2023-11-19] MEDS: LABETALOL 5 MG/ML VIAL MDV IVP STA (16:13)
[2023-11-19] MEDS ORDERED: LABETALOL 5 MG/ML VIAL MDV IVP PRN (17:07)
--- NOTE | 2023-11-19 17:19 | P.CRDCN ---
History of Present Illness Consult date: 11/19/23 History of present illness: HISTORY OF PRESENTING ILLNESS 33-year-old 1, para 0, female who is status post a vaginal delivery 11/17/2023. He presented on 11/16/2023 with labor. She was also noticed to be in 0 with elevated protein creatinine ratio. Patient's is completed about 2 was recorded. She had a successful induction of vaginal delivery. Postdelivery she has had elevated blood pressure. She has been managed on labetalol 200 mg twice a day. Today her blood pressure was elevated in the range of systolic 170s for which she received when necessary labetalol IV pushes and was started on Procardia XL 30 mg Cardiology was paged at 5 PM today because of elevated blood pressure. Systolic blood pressure 170s. Heart rate 70s, sinus rhythm Patient denies any prior history of smoking, decreased previous marijuana use. She does not have any prior cardiovascular history. She was not taking any medications She was not diagnosed with gestational hypertension. REVIEW OF SYSTEMS 14 point review of system is negative except what is mentioned above in HPI. PHYSICAL EXAMINATION Vital signs reviewed. Head: Normocephalic. Eyes: Sclerae, does look yellow. Skin has yellowish drainage Neck: Brisk carotid upstroke, elevated jugular venous distention. Lungs: Clear to auscultation. Heart: Regular rate and rhythm, S1-S2, no S3, no murmur or rub. Abdomen: Soft nontender. Extremities: No edema, intact distal pulses. Neuro: Alert, oritented, no focal deficits ASSESSMENT preeclampsia, Mild occasional overload with elevated JVD, likely due to oxytocin related to vo lume overload Status post vaginal delivery, 11/17/22 Early induction of labor due to preeclampsia with elevated protein creatinine ratio PLAN Give 1 dose of IV Lasix 40 mg. At this time patient is not breast-feeding. Increase Procardia XL to 60 mg daily. 30 mg Procardia XL 1 dose now Keep labetalol 200 mg twice a day Use IV labetalol 10 mg every 6 hours when necessary for SBP more than 160 Obtain CBC, CMP, lactic acid, BNP Past Medical History Past Medical History: Asthma Additional Past Medical History / Comment(s): Childhood asthma History of Any Multi-Drug Resistant Organisms: None Reported Past Surgical History: Adenoidectomy, Ear Surgery, Tonsillectomy Past Anesthesia/Blood Transfusion Reactions: No Reported Reaction Past Psychological History: No Psychological Hx Reported Smoking Status: Never smoker Past Alcohol Use History: None Reported, Rare Past Drug Use History: None Reported - Past Family History Mother Family Medical History: Cancer Additional Family Medical History / Comment(s): Breast cancer Medications and Allergies Home Medications Medication Instructions Recorded Confirmed Type Tcf-[id number] Acid 1 cap PO DAILY 09/12/23 11/16/23 History [-U Capsule (formulary)] Allergies Allergy/AdvReac Type Severity Reaction Status Date / Time No Known Allergies Allergy Verified 11/16/23 14:39 Physical Exam Vitals: Vital Signs Temp Pulse Resp BP BP Pulse Ox 11/19/23 16:31 76 161/90 11/19/23 16:30 76 18 161/90 11/19/23 12:00 98.5 F 71 18 156/92 96 11/19/23 08:33 131/81 11/19/23 07:30 98.2 F 89 17 163/90 163/93 11/19/23 04:00 97.9 F 77 16 138/77 98 11/19/23 00:00 98.2 F 89 16 150/84 97 11/18/23 19:46 98.5 F 80 16 153/89 11/18/23 18:05 98.2 F 76 16 143/81 98 Intake and Output 11/19/23 11/19/23 11/19/23 06:59 14:59 22:59 Intake Total 600 Balance 600 Intake: Oral 600 Other: # Voids 1 2 2 Results 11/18/23 07:08 11/16/23 15:33 Current Medications Generic Name Dose Route Start Last Admin Trade Name Giuseppeq PRN Reason Stop Dose Admin Acetaminophen 650 mg 11/17/23 12:57 Acetaminophen Tab 325 Mg Tab PO Q4HR PRN Mild Pain or Fever >= 100.5 Benzocaine/Menthol 1 gm 11/17/23 12:57 Benzocaine/Menthol [place] 1 Gm/[place]worth Aerosol TOPICAL TID PRN Perineal Discomfort Bisacodyl 10 mg 11/17/23 12:57 Bisacodyl 10 Mg Supp RECTAL DAILY PRN Constipation Diphenhydramine HCl 25 mg 11/17/23 12:57 Diphenhydramine 25 Mg Cap PO Q6HR PRN Mild Itching Diphenhydramine HCl 25 mg 11/17/23 12:57 Diphenhydramine 50 Mg/Ml 1 Ml Vial IVP Q6HR PRN Mild Itching Emollient Ointment 1 applic 11/17/23 12:57 Lanolin Cream 5 Gm Tube TOPICAL Q1HR PRN Breast Feeding Ferrous Sulfate 325 mg 11/18/23 10:15 11/19/23 08:32 Ferrous Sulfate 325 Mg Tab PO 325 mg BID-W/MEALS [facility] Administration Hydrocortisone 1 applic 11/17/23 12:57 Hydrocortisone 2.5% Rectal Cream 30 Gm Tube RECTAL BID PRN Hemorrhoids Oxytocin/Sodium Chloride 30 500 mls @ 0 mls/hr 11/17/23 13:00 unit/ IV Solution IV .Q0M [facility] Protocol Per Protocol Ibuprofen 600 mg 11/17/23 12:57 11/19/23 00:09 Ibuprofen 600 Mg Tab PO 600 mg Q6HR PRN Administration Mild Pain (Scale 1 To 3) Labetalol HCl 300 mg 11/18/23 21:00 11/19/23 07:43 Labetalol 100 Mg Tab PO 300 mg BID [facility] Administration Labetalol HCl 10 mg 11/19/23 17:07 Labetalol 5 Mg/Ml Vial Mdv IVP Q6HR PRN SBP > 160 mmhg Nifedipine 60 mg 11/20/23 09:00 Nifedipine Xl 30 Mg Tab.Er.24 PO DAILY [facility] Senna/Docusate Sodium 2 each 11/17/23 20:00 11/19/23 07:43 Sennosides-Docusate Sodium 1 Each Tab PO 2 each BID@0800,2000 [facility] Administration Simethicone 80 mg 11/17/23 12:57 Simethicone 80 Mg Chewable PO HS PRN Indigestion Witch Nieves 1 each 11/17/23 12:57 Witch Nieves 1 Each Med..Pad TOPICAL DAILY PRN Perineal Discomfort Zolpidem Tartrate 5 mg 11/17/23 12:57 Zolpidem 5 Mg Tab PO HS PRN Insomnia Intake and Output 11/19/23 11/19/23 11/19/23 06:59 14:59 22:59 Intake Total 600 Balance 600 Intake: Oral 600 Other: # Voids 1 2 2 11/18/23 07:08 11/16/23 15:33
[2023-11-19] MEDS: NIFEdipine XL 30 MG TAB.ER.24 PO STA (17:26)
[2023-11-19] MEDS: FUROSEMIDE 10 MG/ML 4 ML VIAL IV STA (17:26)
[2023-11-19 17:36] LABS: HCT 25.7 % (34.0-46.0); HGB 8.5 gm/dL (11.4-16.0); Hypochromasia Slight; MCH 30.1 pg (25.0-35.0); MCHC 33.1 g/dL (31.0-37.0); MCV 90.9 fL (80.0-100.0); Mean Platelet Volume 11.4; Platelet Count 194 k/uL (150-450); RBC 2.83 m/uL (3.80-5.40); RDW 13.1 % (11.5-15.5); WBC 12.1 k/uL (3.8-10.6)
[2023-11-19 17:46] LABS: ALT 20 U/L (4-34); AST 28 U/L (14-36); African American GFR (CKD) >90 (>60 ml/min/1.73 sqM); Alkaline Phosphatase 98 U/L (38-126); Anion Gap 5 mmol/L; Blood Urea Nitrogen 13 mg/dL (7-17); Calcium 9.3 mg/dL (8.4-10.2); Carbon Dioxide 22 mmol/L (22-30); Chloride 109 mmol/L (98-107); Glucose 95 mg/dL (74-99); Non-African American GFR(CKD) >90 (>60 ml/min/1.73 sqM); Potassium 4.4 mmol/L (3.5-5.1); Sodium 136 mmol/L (137-145); Total Bilirubin 0.3 mg/dL (0.2-1.3); Total Protein 5.7 g/dL (6.3-8.2)
[2023-11-19 17:54] LABS: NT-Pro-B-Type Natriuretic Pept 414 pg/mL
[2023-11-20] MEDS: FUROSEMIDE 10 MG/ML 4 ML VIAL IV ONE (06:30)
--- NOTE | 2023-11-20 06:47 | P.PROBDLV ---
Vaginal Delivery Note - . Vaginal Delivery Note: day #3. Patient had some recurrent elevated blood pressures in the severe range yesterday and earlier in the morning I added oral Procardia however the continued despite this. For this reason, I did consult cardiology and they have given her some IV Lasix and continued intermittent doses of IV labetalol. Repeat blood work was normal. Patient is feeling well otherwise without complaints. Plan today is to continue care and follow cardiology for adjustment of her blood pressure medications. She is stable from an obstetrical standpoint for discharge however cannot be discharged until felt to be stable by cardiology.
[2023-11-20 08:05] VITALS: RESP 18
[2023-11-20] MEDS: NIFEdipine XL 30 MG TAB.ER.24 PO SCH (08:25)
--- NOTE | 2023-11-20 09:17 | P.PN ---
Subjective Progress Note Date: 11/20/23 HISTORY OF PRESENTING ILLNESS 33-year-old 1, para 0, female who is status post a vaginal delivery 11/17/2023. She presented on 11/16/2023 with labor. She was also noticed to be in 0 with elevated protein creatinine ratio. Patient's is completed about 2 was recorded. She had a successful induction of vaginal delivery. Postdelivery she has had elevated blood pressure. She has been managed on labetalol 200 mg twice a day. Today her blood pressure was elevated in the range of systolic 170s for which she received when necessary labetalol IV pushes and was started on Procardia XL 30 mg Cardiology was paged at 5 PM today because of elevated blood pressure. Systolic blood pressure 170s. Heart rate 70s, sinus rhythm Patient denies any prior history of smoking, decreased previous marijuana use. She does not have any prior cardiovascular history. She was not taking any medications She was not diagnosed with gestational hypertension. 11/20 Patient is seen today in follow-up. She is currently on labetalol 300 mg twice daily and Procardia 60 mg daily XL. She is status post 1 dose of IV Lasix 40 mg yesterday. Blood pressure this morning was 136/89. Patient denies having any shortness of breath, no chest pain, no lightheadedness or dizziness. Patient denies any previous history of hypertension. PHYSICAL EXAMINATION Vital signs reviewed. Head: Normocephalic. Lungs: Clear to auscultation. Heart: Regular rate and rhythm, S1-S2, no S3, no murmur or rub. Abdomen: Soft nontender. Extremities: No edema, intact distal pulses. Neuro: Alert, oritented, no focal deficits ASSESSMENT preeclampsia, Mild occasional overload with elevated JVD, likely due to oxytocin related to volume overload Status post vaginal delivery, 11/17/22 Early induction of labor due to preeclampsia with elevated protein creatinine ratio PLAN Continue Procardia XL 60 mg daily and labetalol 300 mg twice daily Obtain 2D echocardiogram Continue to monitor blood pressure If echocardiogram is unremarkable and blood pressure readings remain stable by t his afternoon, patient may be discharged home. Nurse practitioner note has been reviewed, I agree with documented findings and plan of care. Patient was seen and examined. Objective - Vital Signs Vital signs: Vital Signs Temp 98.8 F 11/20/23 07:40 Pulse 90 11/20/23 07:40 Resp 18 11/20/23 07:40 BP 136/89 11/20/23 07:40 Pulse Ox 97 11/20/23 07:40 FiO2 Intake & Output 11/19/23 11/20/23 11/20/23 18:59 06:59 18:59 Intake Total 600 Output Total 800 1400 Balance 600 -800 -1400 Intake: Oral 600 Output: Urine 800 1400 Other: # Voids 2 1 - Labs CBC & Chem 7: 11/19/23 17:23 11/19/23 17:23 Labs: Abnormal Lab Results - Last 24 Hours (Table) 11/19/23 11/19/23 Range/Units 17:23 17:23 WBC 12.1 H (3.8-10.6) k/uL RBC 2.83 L (3.80-5.40) m/uL Hgb 8.5 L (11.4-16.0) gm/dL Hct 25.7 L (34.0-46.0) % Sodium 136 L (137-145) mmol/L Chloride 109 H (98-107) mmol/L Total Protein 5.7 L (6.3-8.2) g/dL Albumin 3.0 L (3.5-5.0) g/dL
--- NOTE | 2023-11-20 12:08 | CA ---
Transthoracic Echo Report Name: Yodit Perez Age: 33 Gender: F : 1990 Exam Date: 11/20/2023 09:36 Exam Location: [facility] Ht (in): 65 Wt (lb): 182 Ordering Physician: Kathi Beckett Attending/Referring Phys: [id number], Sophy [employer] Trader Deanna Kim RDCS Procedure CPT: Indications: LVF Cardiac Hx: Technical Quality: Good Contrast 1: Total Dose (mL): Contrast 2: Total Dose (mL): MEASUREMENTS (Male / Female) Normal Values 2D ECHO LV Diastolic Diameter PLAX 4.8 cm 4.2 - 5.9 / 3.9 - 5.3 cm LV Systolic Diameter PLAX 3.4 cm IVS Diastolic Thickness 1.0 cm 0.6 - 1.0 / 0.6 - 0.9 cm LVPW Diastolic Thickness 1.0 cm 0.6 - 1.0 / 0.6 - 0.9 cm LV Relative Wall Thickness 0.4 RV Internal Dim ED PLAX 2.9 cm LA Systolic Diameter LX 3.3 cm 3.0 - 4.0 / 2.7 - 3.8 cm LV Diastolic Volume MOD BP 97.6 cm??? 67 - 155 / 56 - 104 cm??? LV Systolic Volume MOD BP 31.9 cm??? - 58 / 19 - 49 cm??? LV Ejection Fraction MOD BP 67.3 % >= 55 % LV Cardiac Index MOD BP 2666.5 cm???/min???m??? LV Diastolic Volume MOD 4C 89.0 cm??? LV Systolic Volume MOD 4C 23.7 cm??? LV Ejection Fraction MOD 4C 73.4 % LV Cardiac Index MOD 4C 2648.1 cm???/min???m??? LV Diastolic Length 4C 9.1 cm LV Systolic Length 4C 7.1 cm LV Diastolic Volume MOD 2C 97.6 cm??? LV Systolic Volume MOD 2C 43.5 cm??? LV Ejection Fraction MOD 2C 55.4 % LV Cardiac Index MOD 2C 2192.0 cm???/min???m??? LV Diastolic Length 2C 8.2 cm LV Systolic Length 2C 7.2 cm LA Volume 53.2 cm??? 18 - 58 / 22 - 52 cm??? LA Volume Index 27.0 cm???/m??? 16 - 28 cm???/m??? M-MODE Aortic Root Diameter MM 2.6 cm MV E Point Septal Separation 0.5 cm AV Cusp Separation MM 2.1 cm DOPPLER AV Peak Velocity 169.4 cm/s AV Peak Gradient 11.5 mmHg MV Area PHT 3.5 cm??? Mitral E Point Velocity 91.5 cm/s Mitral A Point Velocity 56.3 cm/s Mitral E to A Ratio 1.6 MV Deceleration Time 219.2 ms MV E' Velocity 10.2 cm/s Mitral E to MV E' Ratio 9.0 FINDINGS Left Ventricle Left ventricular ejection fraction is estimated at 55-60 %. Left ventricular cavity size normal. Left ventricular wall thickness normal. Right Ventricle Normal right ventricular size. Right Atrium Normal right atrial size. Left Atrium Mildly increased left atrial volume. Mitral Valve Structurally normal mitral valve. No mitral stenosis, regurgitation or prolapse. Aortic Valve Trileaflet aortic valve. No aortic valve stenosis or regurgitation. Tricuspid Valve Structurally normal tricuspid valve. No tricuspid stenosis, regurgitation or prolapse. Pulmonic Valve Structurally normal pulmonic valve. Trace pulmonic regurgitation. Pericardium No pericardial effusion. Aorta Normal size aortic root and proximal ascending aorta. CONCLUSIONS Normal LV systolic function No significant valvular abnormalities noted No pericardial effusion Previewed by: Dr. Steven Elder MD (Electronically Signed) Final Date: 20 November 2023 12:07
[2023-11-20 12:13] VITALS: BP 124/80; PULSE 89; TEMP 97.9
--- NOTE | 2023-12-25 17:09 | CDI ---
Documentation Clarification Form Date: 12/25/2023 04:47:37 PM From: Guerita Hope Phone: Admit Date: 11/16/2023 06:11:00 PM Patient Name: Yodit Perez Visit Number: [id number] Discharge Date: 11/20/2023 04:30:00 PM ATTENTION: The Clinical Documentation Specialists (CDI) and [facility] Coding Staff appreciate your assistance in clarifying documentation. Please respond to the clarification below the line at the bottom and electronically sign. The CDI & [facility] Coding staff will review the response and follow-up if needed. Please note: Queries are made part of the Legal Health Record. If you have any questions, please contact the author of this message via ITS. Dr. Julio Cesar Hurley There is documentation of postpartumpreeclampsia per Consult 11/19. Additional clarification is requested. History/Risk Factors: 33yo F, postpartumpreeclampsia, s/p earlyinduction of labordue topreeclampsiawithelevatedprotein creatinine ratio, GBS+, due to oxytocin related to volume overload Clinical Indicators: BP: 11/16 17:12 159/90 20:00 143/80 11/17 12:20 136/85 13:50 144/84 11/18 00:007 132/73 05:00 117/79 11/19 00:00 150/84 04:00 138/77 Treatment: Give 1 dose of IV Lasix 40 mg. At this time patient is not breast- feeding. Increase Procardia XL to 60 mg daily.30 mg Procardia XL 1 dose now. Keep labetalol 200 mg 2xd. Use IV labetalol 10 mg/ 6hr when necessary for SBP more than 160. Can you please clarify the acuity of postpartumpreeclampsia? [ ] Mild [ ] Moderate [ X ] Severe [ ] Other, please specify [ ] Unable to determine (Template Last Revised: December 2020) MTDD
== END 2023-11-20 16:30 | disposition home or self-care (01) | DRG 806 ==
LOC: FBPOP 14:22 → 4FBP 16:45 → OBSVTOIN 18:11
PROVIDERS: ADMIT Obstetrics & Gynecology; ATTEND Obstetrics & Gynecology
PROC: 10E0XZZ Delivery of Products of Conception, External Approach (ICD-10-PCS; principal; 2023-11-17)
PROC: 0KQM0ZZ Repair Perineum Muscle, Open Approach (ICD-10-PCS; 2023-11-17)
PROC: 10907ZC Drainage of Amniotic Fluid, Therapeutic from Products of Conception, Via Natural or Artificial Opening (ICD-10-PCS; 2023-11-17)
PROC: 0W8NXZZ Division of Female Perineum, External Approach (ICD-10-PCS; 2023-11-17)
PROC: 3E033VJ Introduction of Other Hormone into Peripheral Vein, Percutaneous Approach (ICD-10-PCS; 2023-11-17)
DX: O14.14 Severe pre-eclampsia complicating childbirth (principal); O99.834 Other infection carrier state complicating childbirth; Z37.0 Single live birth; O72.0 Third-stage hemorrhage; E87.79 Other fluid overload; O69.89X0 Labor and delivery complicated by other cord complications, not applicable or unspecified; O9A.23 Injury, poisoning and certain other consequences of external causes complicating the puerperium; T48.0X5A Adverse effect of oxytocic drugs, initial encounter; Z3A.38 38 weeks gestation of pregnancy; Z22.330 Carrier of Group B streptococcus; O70.1 Second degree perineal laceration during delivery
CPT/HCPCS: 59025; 80053; 81001; 82565; 82570; 83605; 83615; 83880; 84156; 84450; 84460; 84520; 84550; 85025; 85027; 85610; 85730; 86850; 86900; 86901; 88307; 90471; 90707; 93306; 99215